=== PATIENT | male | born 1990 | race Caucasian/White ===

== ENCOUNTER 2023-04-03 13:15 | Outpatient (CLI) | payer OTHER, SELFPAY | END 2023-04-03 13:16 | disposition home or self-care (01) | PROVIDERS: PCP Family Medicine; Visit Provider Family Medicine | DX: Z00.00 Encounter for general adult medical examination without abnormal findings (principal); F41.9 Anxiety disorder, unspecified; Z13.6 Encounter for screening for cardiovascular disorders; Z13.9 Encounter for screening, unspecified | CPT/HCPCS: 80048; 80061 ==